=== PATIENT | male | born 1995 | race Hispanic/Latino ===

== ENCOUNTER 2016-06-28 19:52 | Observation (INO) | payer BC ==
[2016-06-28] MEDS ORDERED: Sodium Chloride 0.9% 1,000 ML IV STA (20:12)
--- NOTE | 2016-06-28 20:16 | ED PDOC ---
HPI: Abdomen Time Seen by Provider: 06/28/16 20:00 Chief Complaint (Nursing): Abdominal Pain Chief Complaint (Provider): abdominal pain History Per: Patient History/Exam Limitations: no limitations Onset/Duration Of Symptoms: Days (2) Pain Scale Rating Of: 3 Location Of Pain/Discomfort: RLQ, Other Additional History Per: Patient Additional Complaint(s): 21 y/o male presnets with abdominal pain x 2 days. Patient states pain started in middle of abdomen and has since traveled to right lower abdomen. Patient seen by [facility] today and sent for outpatient CT to rule out appendicitis but was unable to get CT done. Denies fever, nausea/vomiting, changes in bowel movements, urinary symptoms, recent travel. Past Medical History Reviewed: Historical Data, Nursing Documentation, Vital Signs Vital Signs: Last Vital Signs Temp 98 F 06/28/16 19:55 Pulse 70 06/28/16 19:55 Resp 18 06/28/16 19:55 BP 149/78 06/28/16 19:55 Pulse Ox 100 06/28/16 22:12 - Medical History PMH: Asthma (controlled) - Surgical History Surgical History: Tonsillectomy (and adenoids) - Family History Family History: States: Unknown Family Hx - Home Medications Home Medications: Ambulatory Orders Medication Instructions Recorded No Known Home Med 06/28/16 - Allergies Allergies/Adverse Reactions: Allergies Allergy/AdvReac Type Severity Reaction Status Date / Time No Known Allergies Allergy Verified 10/07/14 21:33 Review of Systems ROS Statement: Except As Marked, All Systems Reviewed And Found Negative Gastrointestinal: Positive for: Abdominal Pain Physical Exam - Reviewed Nursing Documentation Reviewed: Yes Vital Signs Reviewed: Yes - Physical Exam Appears: Positive for: Well, Non-toxic, No Acute Distress Head Exam: Positive for: ATRAUMATIC, NORMAL INSPECTION, NORMOCEPHALIC Skin: Positive for: Normal Color Eye Exam: Positive for: Normal appearance Cardiovascular/Chest: Positive for: Regular Rate, Rhythm Respiratory: Positive for: Normal Breath Sounds Gastrointestinal/Abdominal: Positive for: Bowel Sounds, Soft, Tenderness (right lower (mild)). Negative for: Guarding, Rebound Extremity: Positive for: Normal ROM Neurologic/Psych: Positive for: Alert, Oriented - Laboratory Results Result Diagrams: 06/28/16 20:27 06/28/16 20:27 - ECG ECG: Positive for: Viewed By Me (reviewed by ED attending) ECG Rhythm: Positive for: Sinus Rhythm O2 Sat by Pulse Oximetry: 100 Pulse Ox Interpretation: Normal - Radiology X-Ray: Viewed By Me X-Ray Interpretation: No Acute Disease - Progress ED Course And Treament: labs, CT abd/pelvis, IV fluids EXAM: CT Abdomen and Pelvis With Intravenous Contrast. CLINICAL HISTORY: The patient is a 21 years male; Pain; Abdominal pain; Localized; Right lower quadrant (rlq); Additional info: Rlq pain 06/28/2016 8:12 PM TECHNIQUE: Axial computed tomography images of the abdomen and pelvis with intravenous contrast. This CT exam was performed using one or more of the following dose reduction techniques : automated exposure control, adjustment of the mA and/or kV according to patient size, and/ or use of iterative reconstruction technique. Coronal and sagittal reformatted images were created and reviewed. CONTRAST: 95 mL of [id number] administered intravenously. COMPARISON: No relevant prior studies available. FINDINGS: Lower thorax: <No significant pleural effusions.> ABDOMEN: Liver: Unremarkable. No mass. Gallbladder and bile ducts: Unremarkable. No calcified stones. No ductal dilation. Pancreas: Unremarkable. No ductal dilation Spleen: Unremarkable. No splenomegaly. Adrenals: Unremarkable. No mass. Kidneys and ureters: Unremarkable. No solid mass. No hydronephrosis. Stomach and bowel: Lack of oral contrast opacification limits evaluation of the bowel. Appendix: The appendix demonstrates mild diffuse distention measuring up to 13 mm with mild periappendiceal fat infiltration. These findings are concerning for mild or early acute appendicitis. PELVIS: Bladder: Unremarkable. Reproductive: Unremarkable as visualized. ABDOMEN and PELVIS: Intraperitoneal space: Unremarkable. No free air. No significant fluid collection. Bones/joints: No acute fracture. No dislocation. Soft tissues: Unremarkable. Vasculature: Unremarkable. No abdominal aortic aneurysm. Lymph nodes: mesenteric lymph nodes noted, largest measures up to 1.3 cm in short axis.. IMPRESSION: The appendix demonstrates mild diffuse distention measuring up to 13 mm with mild periappendiceal fat infiltration. These findings are concerning for mild or early acute appendicitis. IV zosyn, ekg, chest xray ordered Case discussed with Bahman Jackson NP for admission. Dr. Branham, Surgeon on-call, aware. Dr. May, [employer] Department Manager on-call, aware. Disposition - Clinical Impression Clinical Impression: Appendicitis, acute - Disposition Disposition Time: 22:06 Condition: FAIR - Pt Status Changed To: Hospital Disposition Of: Inpatient - Admit Certification Admit to Inpatient:: After my assessment, the patient will require hospitalization for at least two midnights. This is because of the severity of symptoms shown, intensity of services needed, and/or the medical risk in this patient being treated as an outpatient. - POA Present On Arrival: None
[2016-06-28 20:28] VITALS: BMI 25.3
[2016-06-28 20:35] LABS: BASO # 0.1 K/uL (0.0-0.2); BASO % 0.9 % (0.0-2.0); EOS # 0.1 K/uL (0.0-0.7); EOS % 1.4 % (0.0-4.0); HEMATOCRIT 43.7 % (35.0-51.0); LYMPH # 2.1 K/uL (1.0-4.3); LYMPH % 23.6 % (20.0-40.0); MEAN CELL VOLUME 87.5 fl (80.0-94.0); MEAN CORPUSCULAR HEMOGLOBIN 29.3 pg (27.0-31.0); MEAN CORPUSCULAR HGB CONC 33.4 g/dL (33.0-37.0); MEAN PLATELET VOLUME 8.6 fl (7.2-11.7); MONO # 0.7 K/uL (0.0-0.8); MONO % 7.7 % (0.0-10.0); NEUT # 5.9 K/uL (1.8-7.0); NEUT % 66.4 % (50.0-75.0); RED CELL DISTRIBUTION WIDTH 13.4 % (11.5-14.5); WHITE BLOOD COUNT 8.9 K/uL (4.8-10.8)
[2016-06-28 20:41] LABS: RBC URINE 1 /hpf (0-3); URINE BACTERIA RARE (<OCC); URINE BILIRUBIN NEGATIVE (NEGATIVE); URINE BLOOD NEGATIVE (NEGATIVE); URINE COLOR YELLOW (YELLOW); URINE GLUCOSE (UA) NEG (Normal); URINE KETONE NEGATIVE (NEGATIVE); URINE LEUKOCYTE ESTERASE NEG Leu/uL (Negative); URINE PROTEIN NEGATIVE (NEGATIVE); URINE UROBILINOGEN 0.2-1.0 mg/dL (0.2-1.0); WBC URINE < 1 /hpf (0-5)
[2016-06-28 20:42] LABS: ALB/GLOB RATIO 1.5 (1.0-2.1); ALKALINE PHOSPHATASE 89 U/L (38-126); ALT/SGPT 32 U/L (21-72); AST/SGOT 32 U/L (17-59); BILIRUBIN,TOTAL 0.5 mg/dl (0.2-1.3); BLOOD UREA NITROGEN 17 mg/dl (9-20); CALCIUM 9.4 mg/dL (8.4-10.2); CARBON DIOXIDE 27 mmol/L (22-30); CHLORIDE 97 mmol/L (98-107); GFR AFRICAN-AMERICAN > 60; GLUCOSE,RANDOM 98 mg/dL (75-110); POTASSIUM 3.9 MMOL/L (3.6-5.0); SODIUM 142 mmol/l (132-148); TOTAL PROTEIN 8.2 G/DL (6.3-8.2)
[2016-06-28] MEDS ORDERED: Sodium Chloride 0.9% 50 ML IV ONE (20:47)
[2016-06-28] MEDS ORDERED: Iohexol 300 100 ML IJ ONE (20:47)
[2016-06-28 21:05] LABS: PARTIAL THROMBOPLASTIN TIME 29.8 SECONDS (23.3-32.5)
[2016-06-28] MEDS ORDERED: Piperacillin/Tazobact 3.375 GM in Sodium Chloride 0.9% 100 ML IV ONE (21:56)
[2016-06-28] MEDS: Lactated Ringer's 1,000 ML IV SCH (23:00)
--- NOTE | 2016-06-29 01:30 | CP.PCM.CON ---
History of Present Illness - History of Present Illness History of Present Illness: GENERAL SURGERY CONSULT NOTE FOR DR. GUO 21yo M with PMHx of asthma presents to the ED with abdominal pain. The pain began Monday afternoon as mild periumbilical abdominal pain. Then on Monday the pain moved to the RLQ. The pain stayed mild but it did not resolve so the patient went to [facility] on Monday. He was sent for outpatient CT to rule out appendicitis but he was unable to get the CT done so he came to the ED. He states the pain is the same as when it began and has not worsened or improved. He denies nausea, vomiting, diarrhea. He has a good appetite. PMHx: asthma Surgeries: tonsillectomy, adenoids at 5yo, wisdom teeth at 17yo Allergies: cats Social history: occasional etoh, denies tobacco use or drug use Review of Systems - Review of Systems All systems: reviewed and no additional remarkable complaints except (as per HPI ) Past Patient History - Past Medical History & Family History Past Medical History?: Yes - Past Social History Smoking Status: Never Smoked - CARDIAC Hx Cardiac Disorders: No - PULMONARY Hx Respiratory Disorders: Yes Hx Asthma: Yes (controlled) - NEUROLOGICAL Hx Neurological Disorder: No - HEENT Hx HEENT Problems: No - RENAL Hx Chronic Kidney Disease: No - ENDOCRINE/METABOLIC Hx Endocrine Disorders: No - HEMATOLOGICAL/ONCOLOGICAL Hx Blood Disorders: No - INTEGUMENTARY Hx Dermatological Problems: No - MUSCULOSKELETAL/RHEUMATOLOGICAL Hx Musculoskeletal Disorders: No Hx Falls: No - GASTROINTESTINAL Hx Gastrointestinal Disorders: No - GENITOURINARY/GYNECOLOGICAL Hx Genitourinary Disorders: No - PSYCHIATRIC Hx Psychophysiologic Disorder: No Hx Substance Use: No - SURGICAL HISTORY Hx Surgeries: Yes Hx Tonsillectomy: Yes (and adenoids) - ANESTHESIA Hx Anesthesia: No Hx Anesthesia Reactions: No Hx Malignant Hyperthermia: No Has any member of the family had a problem w/ anesthesia?: No Meds Allergies/Adverse Reactions: Allergies Allergy/AdvReac Type Severity Reaction Status Date / Time No Known Allergies Allergy Verified 10/07/14 21:33 - Medications Medications: Current Medications Lactated Ringer's (Lactated Ringer's) 1,000 mls @ 125 mls/hr IV .Q8H [facility] Last Admin: 06/28/16 23:00 Dose: 125 mls/hr Piperacillin Sod/Tazobactam (Sod 3.375 gm/ Sodium Chloride) 100 mls @ 100 mls/ hr IVPB Q6 [facility] Morphine Sulfate (Morphine) 2 mg IVP Q4 PRN PRN Reason: Pain, moderate (4-7) Ondansetron HCl (Zofran Inj) 4 mg IVP Q4 PRN PRN Reason: Nausea/Vomiting Physical Exam - Constitutional Appears: Well, Non-toxic, No Acute Distress - Head Exam Head Exam: ATRAUMATIC, NORMAL INSPECTION - Eye Exam Eye Exam: EOMI, Normal appearance - Respiratory Exam Respiratory Exam: NORMAL BREATHING PATTERN. absent: Respiratory Distress - Cardiovascular Exam Cardiovascular Exam: +S1, +S2 - GI/Abdominal Exam GI & Abdominal Exam: Soft, Tenderness (very mildly tender RLQ). absent: Distended, Firm, Guarding, Rebound, Rigid Additional comments: Negative Rovsing sign Negative Rebound - Neurological Exam Neurological exam: Alert, CN II-XII Intact, Oriented x3 - Psychiatric Exam Psychiatric exam: Normal Affect, Normal Mood - Skin Skin Exam: Dry, Normal Color, Warm Results - Vital Signs Recent Vital Signs: Last Vital Signs Temp 98.1 F 06/28/16 23:56 Pulse 66 06/28/16 23:58 Resp 19 06/28/16 23:58 BP 127/67 06/28/16 23:56 Pulse Ox 97 06/28/16 23:56 - Labs Result Diagrams: 06/28/16 20:27 06/28/16 20:27 Assessment & Plan - Assessment and Plan (Free Text) Assessment: 21yo M with PMHx of asthma presents with abdominal pain and has possible early/ mild appendicitis - Afebrile, VSS - No leukocytosis - CT: appendix with mild diffuse dilation up to 13mm w/ mild periappendiceal fat infiltration, possible early/mild appendicitis - NPO - IV fluids - IV Abx - Zofran and pain control PRN - Possible OR for lap appy this morning - Written consent obtained and in the chart - Discussed plan with Dr. Yonas May PGY-2
[2016-06-29] MEDS: Piperacillin/Tazobact 3.375 GM in Sodium Chloride 0.9% 100 ML IVPB SCH ×2 (03:41→09:26)
[2016-06-29 07:00] LABS: ALB/GLOB RATIO 1.4 (1.0-2.1); ALKALINE PHOSPHATASE 64 U/L (38-126); ALT/SGPT 27 U/L (21-72); AST/SGOT 23 U/L (17-59); BLOOD UREA NITROGEN 13 mg/dl (9-20); CALCIUM 9.1 mg/dL (8.4-10.2); CARBON DIOXIDE 26 mmol/L (22-30); CHLORIDE 104 mmol/L (98-107); GFR AFRICAN-AMERICAN > 60; GLUCOSE,RANDOM 93 mg/dL (75-110); SODIUM 143 mmol/l (132-148); TOTAL PROTEIN 6.5 G/DL (6.3-8.2)
[2016-06-29 07:06] LABS: BASO % 0.6 % (0.0-2.0); EOS # 0.1 K/uL (0.0-0.7); EOS % 2.5 % (0.0-4.0); HEMATOCRIT 38.9 % (35.0-51.0); LYMPH # 2.2 K/uL (1.0-4.3); LYMPH % 37.5 % (20.0-40.0); MEAN CELL VOLUME 86.5 fl (80.0-94.0); MEAN CORPUSCULAR HEMOGLOBIN 29.4 pg (27.0-31.0); MEAN PLATELET VOLUME 8.6 fl (7.2-11.7); MONO # 0.6 K/uL (0.0-0.8); MONO % 9.8 % (0.0-10.0); NEUT # 2.9 K/uL (1.8-7.0); NEUT % 49.6 % (50.0-75.0); NRBC % 0.2 % (0.0-0.0); WHITE BLOOD COUNT 5.8 K/uL (4.8-10.8)
--- NOTE | 2016-06-29 07:32 | CP.PCM.HP ---
History of Present Illness - History of Present Illness History of Present Illness: pt admitted for 1-2 days of rlq pain. no f/c, n/v/d. pt has appeitite. ct abd surgical note appriciated. pt has rlq tenderness. med hx mild asthma, no anesthesia or bleeding problems. nonsmoker Present on Admission - Present on Admission Any Indicators Present on Admission: No Review of Systems - Gastrointestinal Gastrointestinal: As Per HPI, Abdominal Pain Past Patient History - Past Medical History & Family History Past Medical History?: Yes - Past Social History Smoking Status: Never Smoked - CARDIAC Hx Cardiac Disorders: No - PULMONARY Hx Respiratory Disorders: Yes Hx Asthma: Yes (controlled) - NEUROLOGICAL Hx Neurological Disorder: No - HEENT Hx HEENT Problems: No - RENAL Hx Chronic Kidney Disease: No - ENDOCRINE/METABOLIC Hx Endocrine Disorders: No - HEMATOLOGICAL/ONCOLOGICAL Hx Blood Disorders: No - INTEGUMENTARY Hx Dermatological Problems: No - MUSCULOSKELETAL/RHEUMATOLOGICAL Hx Musculoskeletal Disorders: No Hx Falls: No - GASTROINTESTINAL Hx Gastrointestinal Disorders: No - GENITOURINARY/GYNECOLOGICAL Hx Genitourinary Disorders: No - PSYCHIATRIC Hx Psychophysiologic Disorder: No Hx Substance Use: No - SURGICAL HISTORY Hx Surgeries: Yes Hx Tonsillectomy: Yes (and adenoids) - ANESTHESIA Hx Anesthesia: No Hx Anesthesia Reactions: No Hx Malignant Hyperthermia: No Has any member of the family had a problem w/ anesthesia?: No Meds Allergies/Adverse Reactions: Allergies Allergy/AdvReac Type Severity Reaction Status Date / Time No Known Allergies Allergy Verified 10/07/14 21:33 Physical Exam - Constitutional Appears: Well, Non-toxic, No Acute Distress - Head Exam Head Exam: ATRAUMATIC, NORMAL INSPECTION, NORMOCEPHALIC - Eye Exam Eye Exam: EOMI, Normal appearance, PERRL Pupil Exam: NORMAL ACCOMODATION, PERRL - ENT Exam ENT Exam: Mucous Membranes Moist, Normal Exam - Neck Exam Neck exam: Positive for: Normal Inspection - Respiratory Exam Respiratory Exam: Clear to Auscultation Bilateral, NORMAL BREATHING PATTERN - Cardiovascular Exam Cardiovascular Exam: REGULAR RHYTHM, RRR, +S1, +S2 - GI/Abdominal Exam GI & Abdominal Exam: Normal Bowel Sounds, Soft, Tenderness Additional comments: rlq tenderness @ mcburneys point - Extremities Exam Extremities exam: Positive for: full ROM, normal capillary refill, normal inspection, pedal pulses present - Back Exam Back exam: NORMAL INSPECTION - Neurological Exam Neurological exam: Alert, CN II-XII Intact, Normal Gait, Oriented x3, Reflexes Normal - Psychiatric Exam Psychiatric exam: Normal Affect, Normal Mood - Skin Skin Exam: Dry, Intact, Normal Color, Warm Results - Vital Signs Recent Vital Signs: Last Vital Signs Temp 98.0 F 06/29/16 06:00 Pulse 60 06/29/16 06:00 Resp 19 06/29/16 06:00 BP 121/70 06/29/16 06:00 Pulse Ox 97 06/29/16 06:00 - Labs Result Diagrams: 06/29/16 05:55 06/29/16 05:55 Labs: Laboratory Results - last 24 hr 06/29/16 05:55 WBC 5.8 RBC 4.50 Hgb 13.2 Hct 38.9 MCV 86.5 MCH 29.4 MCHC 34.0 RDW 13.0 Plt Count 203 MPV 8.6 Neut % (Auto) 49.6 L Lymph % (Auto) 37.5 Titus % (Auto) 9.8 Eos % (Auto) 2.5 Baso % (Auto) 0.6 Neut # 2.9 Lymph # 2.2 Titus # 0.6 Eos # 0.1 Baso # 0.0 Sodium 143 Potassium 4.0 Chloride 104 Carbon Dioxide 26 Anion Gap 17 BUN 13 Creatinine 0.9 Est GFR ( Amer) > 60 Est GFR (Non-Af Amer) > 60 Random Glucose 93 Calcium 9.1 Total Bilirubin 1.0 AST 23 ALT 27 Alkaline Phosphatase 64 Total Protein 6.5 Albumin 3.7 Globulin 2.7 Albumin/Globulin Ratio 1.4 Assessment & Plan (1) Appendicitis, acute Assessment and Plan: zosyn, morphin/zofran prn npo surgical consult med cleared for or if consents may provide info to father as per pt surgery-figueroa Status: Acute (2) DVT prophylaxis Assessment and Plan: scd and aehose ambulation Status: Acute Decision To Admit - Pt Status Changed To: Hospital Disposition Of: Observation - . Bed Request Type: Med/Surg Admitting Physician: Ad Carmona
--- NOTE | 2016-06-29 08:09 | CT ---
PROCEDURE: CT Abdomen and Pelvis with contrast HISTORY: rlq pain COMPARISON: None. TECHNIQUE: Contrast dose: 95 mL of Omnipaque 300 Radiation dose: Total exam DLP = 924.78 mGy-cm. FINDINGS: LOWER THORAX: Unremarkable. LIVER: Unremarkable. No gross lesion or ductal dilatation. GALLBLADDER AND BILE DUCTS: Unremarkable. PANCREAS: Unremarkable. No gross lesion or ductal dilatation. SPLEEN: Unremarkable. ADRENALS: Unremarkable. No mass. KIDNEYS AND URETERS: Unremarkable. No hydronephrosis. No solid mass. VASCULATURE: Unremarkable. No aortic aneurysm. BOWEL: Unremarkable. No obstruction. No gross mural thickening. Mild constipation is noted. APPENDIX: The appendix is mildly enlarged surrounding with mild inflammatory changes. Findings suspicious for an early or mild acute appendicitis. PERITONEUM: Unremarkable. No free fluid. No free air. LYMPH NODES: Unremarkable. No enlarged lymph nodes. BLADDER: Unremarkable. REPRODUCTIVE: Unremarkable. BONES: No acute fracture. OTHER FINDINGS: None. IMPRESSION: Findings concerning for an early appendicitis. No evidence of abscess formation or free air. Mild constipation. Mildly dilated terminal ileum. Preliminary report was submitted by [facility].
--- NOTE | 2016-06-29 09:23 | RAD ---
PROCEDURE: CHEST RADIOGRAPH, 1 VIEW HISTORY: admission COMPARISON: None available. FINDINGS: LUNGS: Clear. PLEURA: No pneumothorax or pleural fluid seen. CARDIOVASCULAR: Normal. OSSEOUS STRUCTURES: No significant abnormalities. VISUALIZED UPPER ABDOMEN: Normal. OTHER FINDINGS: None. IMPRESSION: No active disease.
[2016-06-29] MEDS: Lactated Ringer's 1,000 ML IV SCH (09:25)
[2016-06-29] MEDS ORDERED: Bupivacaine 0.5% Inj(30mL) ONE (11:12)
[2016-06-29] MEDS ORDERED: Propofol 10 mg/ml Inj (20 ML) ONE (11:28)
[2016-06-29] MEDS ORDERED: Rocuronium 10 mg/ml (5 ml) ONE (11:28)
[2016-06-29] MEDS ORDERED: Succinylcholine 200 mg/10 ml Inj IV ONE (11:28)
[2016-06-29] MEDS ORDERED: Midazolam 2 MG/2 ML VIAL ONE (11:28)
[2016-06-29] MEDS ORDERED: Neostigmine Methylsulfate 2 MG/2 ML ML IV ONE (11:29)
[2016-06-29] MEDS ORDERED: Lactated Ringer's 1,000 ML IV ONE ×2 (11:35→12:49)
--- NOTE | 2016-06-29 12:43 | PCM.SURG1 ---
Surgeon's Initial Post Op Note - Surgeon's Notes Surgeon: Dr. Branham Coil Binder: Dr. Caicedo PGY-2, Dr. Richards PGY-1 Type of Anesthesia: General Endo Pre-Operative Diagnosis: acute appendicitis Operative Findings: see operative report Post-Operative Diagnosis: see operative report Operation Performed: laparoscopic appendectomy Specimen/Specimens Removed: appendix Estimated Blood Loss: EBL {In ML}: 10 Drains Used: No Drains Post-Op Condition: Good Date of Surgery/Procedure: 06/29/16 Time of Surgery/Procedure: 12:00
[2016-06-29] MEDS ORDERED: HYDROmorphone 0.5 mg/0.5 ml ISec ONE (12:57)
[2016-06-29] MEDS: HYDROmorphone 0.5 mg/0.5 ml ISec IVP PRN ×3 (13:05→13:42)
[2016-06-29] MEDS ORDERED: Piperacillin/Tazobact 3.375 GM in Sodium Chloride 0.9% 100 ML IVPB STA (16:03)
--- NOTE | 2016-06-29 16:11 | CARD ---
APPROVED REPORT EKG Measurement Heart [id number] <Conclusion> Normal sinus rhythm Incomplete right bundle branch block Borderline ECG
[2016-06-29 16:12] VITALS: RESP 20
[2016-06-29 20:22] VITALS: BP 131/66; PULSE 62; TEMP 99.4; O2SAT 98
--- NOTE | 2016-06-30 07:21 | CP.PCM.DIS ---
Provider - Provider Date of Admission: 06/28/16 22:33 Attending physician: Ad Carmona MD Primary care physician: Colin Grossman MD Consults: 06/29/16 00:15 Pastoral Care Referral Routine Comment: Physician Instructions: Reason For Exam: New admission Time Spent in preparation of Discharge (in minutes): 15 Diagnosis - Discharge Diagnosis (1) Appendicitis, acute Status: Acute (2) DVT prophylaxis Status: Acute Hospital Course - Lab Results Lab Results: Most Recent Lab Values WBC 5.8 K/uL (4.8-10.8) 06/29/16 05:55 RBC 4.50 Mil/uL (4.40-5.90) 06/29/16 05:55 Hgb 13.2 g/dL (12.0-18.0) 06/29/16 05:55 Hct 38.9 % (35.0-51.0) 06/29/16 05:55 MCV 86.5 fl (80.0-94.0) 06/29/16 05:55 MCH 29.4 pg (27.0-31.0) 06/29/16 05:55 MCHC 34.0 g/dL (33.0-37.0) 06/29/16 05:55 RDW 13.0 % (11.5-14.5) 06/29/16 05:55 Plt Count 203 K/uL (130-400) 06/29/16 05:55 MPV 8.6 fl (7.2-11.7) 06/29/16 05:55 Neut % (Auto) 49.6 % (50.0-75.0) L 06/29/16 05:55 Lymph % (Auto) 37.5 % (20.0-40.0) 06/29/16 05:55 [place] % (Auto) 9.8 % (0.0-10.0) 06/29/16 05:55 Eos % (Auto) 2.5 % (0.0-4.0) 06/29/16 05:55 Baso % (Auto) 0.6 % (0.0-2.0) 06/29/16 05:55 Neut # 2.9 K/uL (1.8-7.0) 06/29/16 05:55 Lymph # 2.2 K/uL (1.0-4.3) 06/29/16 05:55 [place] # 0.6 K/uL (0.0-0.8) 06/29/16 05:55 Eos # 0.1 K/uL (0.0-0.7) 06/29/16 05:55 Baso # 0.0 K/uL (0.0-0.2) 06/29/16 05:55 PT 11.3 SECONDS (9.6-11.2) H 06/28/16 20:27 INR 1.09 (0.92-1.08) H 06/28/16 20:27 APTT 29.8 SECONDS (23.3-32.5) 06/28/16 20:27 Sodium 143 mmol/l (132-148) 06/29/16 05:55 Potassium 4.0 MMOL/L (3.6-5.0) 06/29/16 05:55 Chloride 104 mmol/L (98-107) 06/29/16 05:55 Carbon Dioxide 26 mmol/L (22-30) 06/29/16 05:55 Anion Gap 17 (10-20) 06/29/16 05:55 BUN 13 mg/dl (9-20) 06/29/16 05:55 Creatinine 0.9 mg/dL (0.8-1.5) 06/29/16 05:55 Est GFR ( Amer) > 60 06/29/16 05:55 Est GFR (Non-Af Amer) > 60 06/29/16 05:55 Random Glucose 93 mg/dL (75-110) 06/29/16 05:55 Calcium 9.1 mg/dL (8.4-10.2) 06/29/16 05:55 Total Bilirubin 1.0 mg/dl (0.2-1.3) 06/29/16 05:55 AST 23 U/L (17-59) 06/29/16 05:55 ALT 27 U/L (21-72) 06/29/16 05:55 Alkaline Phosphatase 64 U/L (38-126) 06/29/16 05:55 Total Protein 6.5 G/DL (6.3-8.2) 06/29/16 05:55 Albumin 3.7 g/dL (3.5-5.0) 06/29/16 05:55 Globulin 2.7 gm/dL (2.2-3.9) 06/29/16 05:55 Albumin/Globulin Ratio 1.4 (1.0-2.1) 06/29/16 05:55 Urine Color Yellow (YELLOW) 06/28/16 20:27 Urine Clarity Clear (Clear) 06/28/16 20:27 Urine pH 7.0 (5.0-8.0) 06/28/16 20:27 Ur Specific [place] 1.014 (1.003-1.030) 06/28/16 20:27 Urine Protein Negative mg/dL (NEGATIVE) 06/28/16 20:27 Urine Glucose (UA) Neg mg/dL (Normal) 06/28/16 20:27 Urine Ketones Negative mg/dL (NEGATIVE) 06/28/16 20:27 Urine Blood Negative (NEGATIVE) 06/28/16 20:27 Urine Nitrate Negative (NEGATIVE) 06/28/16 20:27 Urine Bilirubin Negative (NEGATIVE) 06/28/16 20:27 Urine Urobilinogen 0.2-1.0 mg/dL (0.2-1.0) 06/28/16 20:27 Ur Leukocyte Esterase Neg Jama/uL (Negative) 06/28/16 20:27 Urine RBC (Auto) 1 /hpf (0-3) 06/28/16 20:27 Urine Microscopic WBC < 1 /hpf (0-5) 06/28/16 20:27 Urine Bacteria Rare (<OCC) 06/28/16 20:27 Discharge Exam - Head Exam Head Exam: ATRAUMATIC, NORMAL INSPECTION, NORMOCEPHALIC Discharge Plan - Discharge Medications Prescriptions: Amoxicillin/Clavulanate [Augmentin 875 MG-125 MG] 1 tab PO BID #14 tab oxyCODONE/Acetaminophen [Percocet 5/325 mg Tab] 1 ea PO Q6 PRN #14 tab PRN Reason: Pain, Moderate (4-7) - Follow Up Plan Condition: FAIR Disposition: HOME/ ROUTINE Instructions: Appendicitis (DC), Laparoscopic Appendectomy (DC) Additional Instructions: Follow up with Dr. Branham in 2 days\ CLEARD BY SURGERY, VOIDING AND EATING. PAIN CONTROLLED FINAL DX APPENDICITIS-ACUTE F/U [facility] 1 WK, SURGERYAS DIRECTED RTE DPRN Referrals: Jaime Branham MD [Staff Provider] - Colin Grossman MD [Primary Care Provider] -
--- NOTE | 2016-07-01 13:45 | OP ---
PROCEDURE DATE: 06/29/2016 OPERATION PERFORMED: Laparoscopic appendectomy. SURGEON: Jaime Branham MD. PLASTIC TECHNICIAN: Dr. Caicedo. ESTIMATED BLOOD LOSS: Minimal. PREOPERATIVE DIAGNOSIS: Acute appendicitis. POSTOPERATIVE DIAGNOSIS: Acute appendicitis. OPERATIVE FINDINGS: Acute appendicitis. OPERATION: Laparoscopic appendectomy. Rodriguez catheter placement. PREPARATION AND PROCEDURE: The patient was taken to the Operating Room and placed supine on the [facility] ating Room table. After induction of general anesthesia, a Rodriguez catheter was placed to decompress t he bladder and the abdomen was prepped and draped in the standard surgical fashion. A Veress needle was inserted into the abdomen and the abdomen was insufflated. Once the abdomen was insufflated, a 5 mm trocar was placed through the umbilicus and a diagnostic laparoscopy was performed. The diagnost ic laparoscopy revealed inflammation in the right lower quadrant. The patient was then placed into t he Trendelenburg and left side down position, and a 5 mm suprapubic trocar as well as the 12 mm left- sided trocar were placed under direct vision. The appendix was then found at the base of the cecum, grasped and pulled upwards. A window was made in the mesoappendix using the [place] dissector. Onc e the window was made in the mesoappendix, the Endo-SHANNON was fired across of the appendix and the base of the appendix and cecum were severed. A second firing of the Endo-SHANNON using a vascular load was u sed to fire across the mesoappendix. Once the mesoappendix was severed the appendix was placed into an Endo-catch bag. The patient then returned to the flat position. The area was inspected for hemos tasis and there was no evidence of bleeding. The right lower quadrant was copiously irrigated and th e irrigant was removed. The appendix was then removed via the 12 mm trocar site and the 5 mm trocars were removed under direct vision. The fascia of the 12 mm trocar site was reapproximated using #0 V icryl and the skin incisions were closed using #4-0 Monocryl. Patient was then awakened from general anesthesia. The Rodriguez catheter was removed. Sponges, instruments and needle counts were all correc t at the end of the case. POSTOPERATIVE CONDITION: Jaime Branham MD cc: [id number] TT: 07/01/2016 13:44:40 daxa
== END 2016-06-29 21:45 | disposition home or self-care (01) ==
LOC: H.ER 19:52 → H.ERHOLD 22:33 → H.MEDSURG1 23:50
PROVIDERS: ADMIT Family Medicine; ATTEND Family Medicine
DX: K35.80 Unspecified acute appendicitis (principal); J45.909 Unspecified asthma, uncomplicated
CPT/HCPCS: 36415; 44970; 71010; 74177; 80053; 81003; 85025; 85610; 85730; 87040; 88304; 93005; 96365; 96366; 96374; 96375; 99283; G0378; J0330; J1170; J2001; J2250; J2270; J2405; J2543; J2704; J2710; J3010; J7040; J7120; Q9967